=== PATIENT | male | born 1985 | race Asian ===

== ENCOUNTER 2018-09-04 09:12 | Emergency (ER) | payer OTHER ==
[~2018-09-04] VITALS: Ht 182.9 cm; Wt 89.7 kg
[2018-09-04 09:14] VITALS: BP 138/91
== END 2018-09-04 09:50 | disposition home or self-care (01) ==
LOC: ED 09:44
DX: B34.9 Viral infection, unspecified (principal); S61.412D Laceration without foreign body of left hand, subsequent encounter
CPT/HCPCS: 99281; 99282